=== PATIENT | female | born 1975 | race African-American/Black ===

== ENCOUNTER 2021-06-22 15:02 | Emergency (ER) | payer MEDICAID ==
[~2021-06-22] VITALS: Ht 160 cm; Wt 66.0 kg
[2021-06-22 15:17] VITALS: BP 119/70
[2021-06-22] MEDS ORDERED: METHOCARBAMOL 500MG TABLET PO ONE (17:00)
[2021-06-22] MEDS ORDERED: HYDROCODONE/ACETAMINOPHEN 5/325MG TABLET PO ONE (17:00)
[2021-06-22] MEDS ORDERED: METH-773 MT (18:22)
[2021-06-22] MEDS ORDERED: NAPR-681 MT (18:22)
== END 2021-06-22 18:49 | disposition home or self-care (01) ==
LOC: ER 15:02
DX: S16.1XXA Strain of muscle, fascia and tendon at neck level, initial encounter (principal); M25.551 Pain in right hip; M25.522 Pain in left elbow; Z91.013 Allergy to seafood; Z91.018 Allergy to other foods; Z98.890 Other specified postprocedural states; V43.52XA Car driver injured in collision with other type car in traffic accident, initial encounter; Y93.89 Activity, other specified; Y92.488 Other paved roadways as the place of occurrence of the external cause
CPT/HCPCS: 72040; 73080; 73502; 99284